=== PATIENT | female | born 2000 | race Caucasian/White ===

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

== ENCOUNTER 2020-01-22 15:22 | Emergency (ER) | payer BC ==
[2020-01-22] MEDS ORDERED: BUFFERED LIDOCAINE 10 ML SYRINGE SUBQ STA (16:06)
[2020-01-22] MEDS ORDERED: SULFAMETH/TRIMETH DS 800/160 MG TABLET PO STA (16:06)
--- NOTE | 2020-01-22 16:06 | ED Physician Documentation ---
PD HPI SKIN - Stated complaint Stated Complaint: UNDER R ARM LUMP - Chief complaint Chief Complaint: Wound - History obtained from History obtained from: Patient (Previously healthy 19-year-old woman without possibility of is a 1 week history of a painful lump in the right armpit. She did squeeze it and pus came out but it came back. No fevers or chills. No history of MRSA.) Review of Systems Constitutional: denies: Fever, Chills Nose: reports: Reviewed and negative Throat: reports: Reviewed and negative PD PAST MEDICAL HISTORY - Past Medical History Past Medical History: No - Past Surgical History Past Surgical History: Yes - Present Medications Home Medications: Ambulatory Orders Medication Instructions Recorded Confirmed Sulfamethoxazole/Trimethoprim 1 each PO BID 7 Days #14 tablet 01/22/20 [Sulfamethoxazole-Tmp Ds Tablet] - Allergies Allergies/Adverse Reactions: Allergies Allergy/AdvReac Type Severity Reaction Status Date / Time No Known Drug Allergies Allergy Verified 01/22/20 15:39 - Social History Does the pt smoke?: No Smoking Status: Never smoker Does the pt drink ETOH?: Yes Does the pt have substance abuse?: No - Immunizations Immunizations are current?: Yes PD ED PE NORMAL - Vitals Vital signs reviewed: Yes - General General: Alert and oriented X 3, No acute distress - Extremities Extremities: Other (There is a pointed abscess in the inferior right axilla measuring about 1.5 cm around with mild overlying cellulitis. No active drainage.) - Neuro Neuro: Alert and oriented X 3, Normal speech Results - Vitals Vitals: Vital Signs - 24 hr 01/22/20 15:39 Temperature 36.5 C Heart Rate 93 Respiratory 14 Rate Blood Pressure 124/64 O2 Saturation 98 Oxygen O2 Source Room air Procedures - Abscess I&D (location) R axilla Preparation: Alcohol, Lidocaine 1% Incision: Incised with scalpel, Purulent drainage, Loculations broken, Culture obtained. No: Packed Other: Pt tolerated well, Antibiotic prescribed Departure - Departure Disposition: 01 Home, Self Care Clinical Impression: Abscess Condition: Good Record reviewed to determine appropriate education?: Yes Instructions: ED Abscess IandD Prescriptions: Sulfamethoxazole/Trimethoprim [Sulfamethoxazole-Tmp Ds Tablet] 1 each PO BID 7 Days #14 tablet Comments: We are performing a wound culture, the results should be done in 48-72 hours. If antibiotic change is necessary we will call you. Return if worse in the meantime, especially if you develop increased pain, fevers, cannot keep down the medication. Otherwise follow-up with your physician in approximately 2-3 days.
[2020-01-22 16:42] VITALS: BP 99/58
== END 2020-01-22 16:47 | disposition home or self-care (01) ==
LOC: ED 15:22
DX: L02.411 Cutaneous abscess of right axilla (principal); L03.111 Cellulitis of right axilla
CPT/HCPCS: 10060; 87070; 87181; 87205; 99283; A9270